=== PATIENT | female | born 2000 | race Caucasian/White ===

== ENCOUNTER 2020-06-05 07:35 | Emergency (ER) | payer OTHER, SELFPAY ==
[2020-06-05 07:44] VITALS: BP 124/81; PULSE 80; RESP 17; TEMP 36.8; O2SAT 97
--- NOTE | 2020-06-05 08:08 | ED.FEMALEGU ---
HPI - Female Genitourinary General Chief complaint: Urogenital-Female Stated complaint: Bladder infection Time Seen by Provider: 06/05/20 07:50 Source: patient and family Mode of arrival: ambulatory Limitations: no limitations History of Present Illness HPI Narrative: Patient is a 19-year-old female who presented for evaluation of dysuria. Patient states that she has been taking Macrobid since Monday for urinary tract infection after her urinalysis/urine dip was consistent with a urinary tract infection at a [facility]. No culture that the patient is aware of. Patient denies fever, chills, current nausea or vomiting. No back pain. No vaginal discharge or bleeding. She reports dysuria and frequency. No history of UTIs in the past. Patient does not believe she is . Related Data Home Medications Medication Instructions Recorded Confirmed nitrofurantoin monohyd/m-cryst 06/05/20 Allergies Allergy/AdvReac Type Severity Reaction Status Date / Time No Known Allergies Allergy Mild Verified 06/05/20 07:58 Review of Systems Review of Systems: Narrative: CONSTITUTIONAL: Denies fever CARDIOVASCULAR: Denies chest pain RESPIRATORY: Denies cough or dyspnea. GASTROINTESTINAL: Denies abdominal pain SKIN: Denies rash : Reports dysuria and frequency MUSCULOSKELETAL: Denies back pain NEUROLOGIC: Denies headache PMFSH Past Medical History Medical History (Updated 06/05/20 @ 09:30 by Joselyn Bergman MD) No pertinent past medical history Surgical History Surgical History (Updated 06/05/20 @ 08:09 by Joselyn Bergman MD) No pertinent past surgical history Social History Social History (Updated 06/05/20 @ 08:09 by Joselyn Bergman MD) Smoking status: Never smoker Alcohol intake: unknown Substance use: never Gender identity (if verbalized by the patient): Female Exam Narrative: Exam Narrative: GENERAL: Awake, alert, conversant HEAD: Normocephalic, atraumatic. EYES: PERRLA and EOMI. ENT: Nares clear, no rhinorrhea or epistaxis. Mucous membranes moist. NECK: Supple. CHEST: No respiratory distress, breathing even and non labored HEART: Regular rate, sinus rhythm ABDOMEN:Non distended, mild suprapubic tenderness without guarding or rebound, no flank tenderness EXTREMITIES: Normal range of motion. No edema. SKIN: Warm, dry, no rash. NEURO:No focal deficits. Alert and oriented x3 Course Vital Signs Vital signs: Vital Signs Temperature 36.8 C 06/05/20 07:44 Pulse Rate 80 06/05/20 07:44 Respiratory Rate 06/05/20 07:44 Blood Pressure 124/81 06/05/20 07:44 Pulse Oximetry 97 06/05/20 07:44 Temperature 36.8 C 06/05/20 07:44 Pulse Rate 80 06/05/20 07:44 Respiratory Rate 06/05/20 07:44 Blood Pressure 124/81 06/05/20 07:44 Pulse Oximetry 97 06/05/20 07:44 MDM - Female Genitourinary MDM Narrative Medical decision making narrative: Patient presented for evaluation of dysuria and frequency. She has been taking Macrobid without much improvement in her symptoms. No findings of pyelonephritis, no fever, nausea, vomiting, flank pain. Patient with stable vital signs at the time of assessment, very mild suprapubic tenderness without focal right lower quadrant tenderness. Patient without vaginal discharge or bleeding. Patient is not . No history of nephrolithiasis, no renal colic type symptoms. She does have a urinary tract infection despite being on Macrobid, thus we will expand to Keflex. Patient was given medication in the emergency department with improvement in her symptoms. As she is tolerating oral intake, she was discharged home with family in stable condition and given primary care physician follow-up, advised to return should symptoms not improve in 72 hours or she experience fever, vomiting or back pain. Differential Diagnosis Differential diagnosis: Likely urinary tract infection, vaginitis and cystitis Lab Data Attestation: I reviewe
[2020-06-05] MEDS: ACETAMINOPHEN 500 MG TABLET 1000 MG PO (08:14)
[2020-06-05] MEDS: PHENAZOPYRIDINE HCL 100 MG TABLET 200 MG PO (08:16)
--- NOTE | 2020-06-05 08:16 | PC.NURSE ---
Informed MD that patient unable to urinate. Reports to give patient water and meds. Okay with waiting for urine at this time. Patient made aware amount of urine needed for test. Agreeable to try agin soon.
[2020-06-05 09:12] LABS: Add Urine Microscopic? YES; Appearance Urine Cloudy (Clear); Bacteria Urine Trace /hpf; Bilirubin Urine Negative (Negative); Blood Urine 3+ (Negative); Color Urine Yellow (Yellow); Glucose Urine UA Negative (Negative); Ketones Urine Negative (Negative); Leukocyte Esterase Ur 2+ LEU/UL (Negative); Mucus Urine Few /lpf; Nitrate Urine Negative (Negative); Protein Urine 2+ mg/dL (Negative); RBC Urine >75 /hpf (0-2); Specific Grav Ur 1.027 (1.001-1.035); Squamous Epithelial Cell Urine Many /hpf (Few); WBC Urine >75 /hpf
[2020-06-05 10:00] VITALS: PULSE 86
== END 2020-06-05 10:01 | disposition home or self-care (01) ==
PROVIDERS: Emergency Provider Emergency Medicine
DX: N30.00 Acute cystitis without hematuria (principal)
CPT/HCPCS: 81001; 81025; 87086; 99283; A9270